=== PATIENT | male | born 2000 | race African-American/Black ===

== ENCOUNTER 2024-04-14 18:44 | Emergency (ER) | payer SELFPAY ==
--- NOTE | 2024-04-14 20:27 | RAD REPORT ---
Abdomen Exam Limited: 04/14/2024 8:09 PM CLINICAL HISTORY: ABD PAIN STUDY: Limited right upper quadrant ultrasound of abdomen. COMPARISON: None. FINDINGS: Liver: No significant abnormality. Bile ducts: No intrahepatic or extrahepatic biliary dilatation. Common bile duct measures 3 mm. Gallbladder: Cholelithiasis with stone present in the region of the gallbladder neck. No gallbladder wall thickening. No sonographic Cuenca sign. No pericholecystic fluid. IMPRESSION: Cholelithiasis with stone present at the gallbladder neck. No evidence of acute cholecystitis at this time.
[2024-04-14 21:38] LABS: Specific Gravity > 1.030 (1.005-1.030); Sqamous Epithelial <5 /HPF (None Seen); Urine Bacteria None Seen /HPF (<20); Urine Bilirubin 1+ (Negative); Urine Blood Negative (Negative); Urine Clarity Clear (Clear); Urine Color Yellow (Yellow); Urine Culture Reflex Order NOT NEEDED; Urine Glucose NEGATIVE (Negative); Urine Ketones NEGATIVE (Negative); Urine Microscopic Reflex YN ORDER UMIC; Urine Mucus Slight /HPF (None Seen); Urine Nitrite NEGATIVE (Negative); Urine Protein 1+ (Negative); Urine Urobilinogen 2+ (Normal); Urine WBC <5 /HPF (<5); Urine pH 6.5 (5.0-7.0)
[2024-04-14 21:49] LABS: SARS-CoV-2 Antigen CONTROL BLUE LINE VIS/BG OK; SARS-CoV-2 Antigen Rapid Res Negative (Negative)
[2024-04-14] MEDS ORDERED: NA CHLORIDE 0.9% 1,000 ML ONE (22:32)
[2024-04-14] MEDS ORDERED: FAMOTIDINE 20 MG/2 ML VIAL IV ONE (22:32)
[2024-04-14] MEDS ORDERED: METHYLPREDNISOLONE 125 MG INJ ONE (22:32)
[2024-04-14 22:41] LABS: Absolute Eosinophils 0.3 K/uL (0-0.5); Absolute Lymphocytes (CBC) 0.9 K/uL (0.7-4.9); Absolute Monocytes 0.4 K/uL (0.1-1.3); Absolute Neutrophil 3.9 K/uL (1.8-8.0); Basophils % 0.3 % (0-1.3); Eosinophils % 5.8 % (0-4.4); Hematocrit 42.6 % (39.6-49.0); Hemoglobin 14.2 g/dL (13.6-17.9); Lymphocytes % 16.1 % (15.3-44.8); MCH 29.6 pg (27.0-35.0); MCHC 33.3 g/dL (32.0-36.0); MCV 88.9 fL (80-100); MPV 7.9 fL (7.6-11.3); Monocytes % 6.5 % (3.3-12.3); Neutrophils % 71.3 % (41.7-73.7); Nucleated Red Blood Cells % 0.2 % (0-0); Platelets 319 thou/uL (152-406); RBC Red Blood Cell Count 4.79 M/uL (4.33-5.43); Red Cell Distribution Width 13.9 % (12.1-15.2)
[2024-04-14 22:55] LABS: Albumin 3.5 g/dL (3.4-5.0); Albumin/Globulin Ratio 0.9 (1.1-1.8); Anion Gap 9.9 mEq/L (5.0-15.0); Bilirubin Total 2.4 mg/dL (0.2-1.0); Globulin 4.1 g/dL (2.3-3.5); Potassium 3.9 mEq/L (3.5-5.1); Protein, Total 7.6 g/dL (6.4-8.2)
--- NOTE | 2024-04-14 23:36 | EDPHYS ---
Physician Documentation [facility] Name: Rodri Clancy Age: 23 yrs Sex: Male : 2000 Arrival Date: 04/14/2024 Time: 18:44 Bed 23 Private MD: ED Physician Efra Carrasco HPI: 04/14 19:34 This 23 yrs old Black Male presents to ER via Ambulatory with complaints of Abdominal kb Pain, Fever, Rash. 19:34 Pt is a 23 year old male who presents for abd pain, fever up to 102, lightheadedness kb that started yesterday. States he developed a rash today as well. Denies n/v/d. . Historical: - Allergies: 18:59 No Known Allergies; hb - Home Meds: 18:59 None [Active]; hb - PMHx: 18:59 None; hb - PSHx: 18:59 None; hb - Immunization history:: Adult Immunizations up to date. - Infectious Disease History:: Denies. - Social history:: Smoking status: Patient denies any tobacco usage or history of. ROS: 23:34 Constitutional: As per HPI kb Exam: 23:34 Constitutional: This is a well developed, well nourished patient who is awake, alert, kb and in no acute distress. Head/Face: Normocephalic, atraumatic. ENT: Moist Mucous membranes Cardiovascular: Regular rate Respiratory: Respirations even and unlabored. No increased work of breathing. Talking in full sentences Skin: Warm, dry with normal turgor. Normal color. MS/ Extremity: Pulses equal, no cyanosis. Neurovascular intact. Full, normal range of motion. Neuro: Awake and alert, GCS 15, oriented to person, place, time, and situation. 23:34 Abdomen/GI: Inspection: abdomen appears normal, Bowel sounds: normal, Palpation: mild abdominal tenderness, in the right upper quadrant, Vital Signs: 18:57 BP 105 / 91; Pulse 90; Resp 18; Temp 98.8(TE); Pulse Ox 98% on R/A; Weight 136.08 kg; hb Height 5 ft. 10 in. ; Pain 5/10; 19:30 BP 130 / 74; Pulse 79; Resp 16; Pulse Ox 99% ; kmf 21:31 BP 126 / 78; Pulse 79; Resp 17; Pulse Ox 100% ; kmf 22:28 BP 145 / 87; Pulse 84; Resp 15; Pulse Ox 98% ; kmf 23:00 BP 142 / 88; Pulse 91; Resp 18; Pulse Ox 98% ; kmf 23:15 BP 146 / 85; Pulse 91; Resp 18; Pulse Ox 98% ; kmf 23:45 BP 149 / 82; Pulse 98; Resp 14; Pulse Ox 97% ; me1 18:57 Body Mass Index 43.05 (136.08 kg, 177.8 cm) hb 18:57 Pain Scale: Adult hb MDM: 18:51 Medical Screening Exam initiated kb 23:34 Differential diagnosis: cholecystitis, Cholelithiasis, non-specific abd pain, kb pancreatitis. Data reviewed: vital signs, nurses notes. Management of patient was discussed with the following: [facility] [employer] Sorter: Dr Clinton consulted, recommends transfer for ERCP. Counseling: I had a detailed discussion with the patient and/or guardian regarding the historical points, exam findings, and any diagnostic results supporting the discharge/admit diagnosis, lab results, radiology results, the need to transfer to another facility, [facility] does not immediately have the required specialist. 04/15 00:13 Management of patient was discussed with the following: [facility] pt for transfer. 04/14 19:37 Order name: CBC with Diff; Complete Time: 22:47 kb 04/14 19:37 Order name: CMP; Complete Time: 22:56 kb 04/14 19:37 Order name: Lipase; Complete Time: 22:56 kb 04/14 19:37 Order name: Urinalysis w/ reflexes; Complete Time: 21:41 kb 04/14 19:37 Order name: Flu; Complete Time: 21:54 kb 04/14 19:37 Order name: SARS-COV-2 Antigen Rapid; Complete Time: 21:54 kb 04/14 19:37 Order name: Abdomen Limited US; Complete Time: 20:28 kb 04/14 19:37 Order name: IV Saline Lock; Complete Time: 22:30 kb 04/14 19:37 Order name: Labs collected and sent; Complete Time: 22:30 kb Administered Medications: 04/14 22:36 Drug: Famotidine IVP 20 mg IVP once; dilute with 10 mL 0.9% NaCl; give over 2 minutes me1 Route: IVP; Site: right forearm; 22:54 Follow up: Response: No adverse reaction me1 22:36 Drug: NS 0.9% IV 1000 ml IV at 1 bolus Per protocol; to be given as a bolus over 60 me1 minutes Route: IV; Rate: 1 bolus; Site: right forearm; 23:44 Follow up: Response: No adverse reaction; IV Status: Completed infusion; IV Intake: me1 1000ml 22:36 Drug: MethylPrednisoLONE IVP 125 mg IVP once Route: IVP; Site: right forearm; me1 22:54 Follow up: Response: No adverse reaction me1 Disposition Summary: 04/14/24 23:35 Transfer Ordered Notes: Transfer Location: Other [facility] kb Reason: Higher level of care kb Condition: Stable kb Problem: new kb Symptoms: are unchanged kb Accepting Physician: Dr Sherman(04/15/24 01:28) lg3 Diagnosis - Other cholelithiasis without obstruction kb - Abnormal results of liver function studies kb Discharge Instructions: - Discharge Summary Sheet rv1 Forms: - Medication Reconciliation Form kb - SBAR form kb - Family Work Release rv1 Signatures: Dispatcher [employer] EDMalu Pool, SUPERCALENDER OPERATOR-C SUPERCALENDER OPERATOR-Ckb Roxane Gallardo, RN RN Milena Arana RN RN lg3 Gina Mendez, RN RN me1 Corrections: (The following items were deleted from the chart) 18:59 18:59 PMHx: Unable to Obtain; hb hb 19:38 19:38 Abdomen Limited+US.RAD.BRZ ordered. EDMS EDMS 04/15 00:39 04/14 23:35 Dr zulma maya 04/15 01:28 00:[address] maya lg3
--- NOTE | 2024-04-14 23:36 | ER ---
Nurse's Notes [facility] Name: Rodri Clancy Age: 23 yrs Sex: Male : 2000 Arrival Date: 04/14/2024 Time: 18:44 Bed 23 Private MD: Diagnosis: Other cholelithiasis without obstruction;Abnormal results of liver function studies Presentation: 04/14 18:57 Chief complaint: Fever and abdominal pain x 2 days, itchy rash today. Coronavirus hb screen: At this time, the client does not indicate any symptoms associated with coronavirus-19. Ebola Screen: No symptoms or risks identified at this time. Initial Sepsis Screen: Does the patient meet any 2 criteria? No. Patient's initial sepsis screen is negative. Does the patient have a suspected source of infection? No. Patient's initial sepsis screen is negative. Risk Assessment: Do you want to hurt yourself or someone else? Patient reports no desire to harm self or others. Onset of symptoms was April 13, 2024. 18:57 Method Of Arrival: Ambulatory hb 18:57 Acuity: JOSE ARMANDO 3 hb Historical: - Allergies: 18:59 No Known Allergies; hb - Home Meds: 18:59 None [Active]; hb - PMHx: 18:59 None; hb - PSHx: 18:59 None; hb - Immunization history:: Adult Immunizations up to date. - Infectious Disease History:: Denies. - Social history:: Smoking status: Patient denies any tobacco usage or history of. Screenin:45 [facility] ED Fall Risk Assessment (Adult) History of falling in the last 3 months, me1 including since admission No falls in past 3 months (0 pts) Confusion or Disorientation No (0 pts) Intoxicated or Sedated No (0 pts) Impaired Gait No (0 pts) Mobility Assist Device Used No (0 pt) Altered Elimination No (0 pt) Score/Fall Risk Level 0 - 2 = Low Risk Maintained a safe environment, Provided non-skid footwear, Hourly rounding (assess needs \T\ fall precautionary measures) done. Abuse screen: Denies threats or abuse. Nutritional screening: No deficits noted. Tuberculosis screening: No symptoms or risk factors identified. Assessment: 20:45 General: Appears uncomfortable, obese, well groomed, well developed, Behavior is calm, me1 cooperative, appropriate for age. General: Fever and abdominal pain x 2 days, itchy rash today.. Pain: Complains of pain in abdomen Pain does not radiate. Pain currently is 2 out of 10 on a pain scale. Quality of pain is described as crampy, Pain began gradually, 2-3 days ago. Is continuous. Neuro: Level of Consciousness is awake, alert, obeys commands, Oriented to person, place, time, situation, Appropriate for age. Cardiovascular: Patient's skin is warm and dry. Respiratory: Airway is patent Respiratory effort is even, unlabored, Respiratory pattern is regular, symmetrical. GI: Abdomen is round Bowel sounds present X 4 quads. Abd is soft X 4 quads. GI: Reports lower abdominal pain, upper abdominal pain. : No signs and/or symptoms were reported regarding the genitourinary system. EENT: No signs and/or symptoms were reported regarding the EENT system. Derm: Rash noted that is urticaria, on left low back and right low back. Musculoskeletal: No signs and/or symptoms reported regarding the musculoskeletal system. 04/15 01:28 Reassessment: Patient appears in no apparent distress at this time. No changes from lg3 previously documented assessment. Patient and/or family updated on plan of care and expected duration. Pain level reassessed. Patient is alert, oriented x 3, equal unlabored respirations, skin warm/dry/pink. Vital Signs: 04/14 18:57 BP 105 / 91; Pulse 90; Resp 18; Temp 98.8(TE); Pulse Ox 98% on R/A; Weight 136.08 kg; hb Height 5 ft. 10 in. ; Pain 5/10; 19:30 BP 130 / 74; Pulse 79; Resp 16; Pulse Ox 99% ; kmf 21:31 BP 126 / 78; Pulse 79; Resp 17; Pulse Ox 100% ; kmf 22:28 BP 145 / 87; Pulse 84; Resp 15; Pulse Ox 98% ; kmf 23:00 BP 142 / 88; Pulse 91; Resp 18; Pulse Ox 98% ; kmf 23:15 BP 146 / 85; Pulse 91; Resp 18; Pulse Ox 98% ; kmf 23:45 BP 149 / 82; Pulse 98; Resp 14; Pulse Ox 97% ; me1 18:57 Body Mass Index 43.05 (136.08 kg, 177.8 cm) hb 18:57 Pain Scale: Adult hb ED Course: 18:50 Patient arrived in ED. mr 18:51 BandarMalu FNP-C [facility] kb 18:51 Efra Carrasco MD is Attending Physician. kb 18:59 Triage completed. hb 19:00 Arm band placed on. hb 20:11 Abdomen Limited US In Process Unspecified. EDMS 20:45 Patient has correct armband on for positive identification. Bed in low position. Call me1 light in reach. Side rails up X2. Provided Education on: POC. Verbalized understanding. . Client placed on continuous cardiac and pulse oximetry monitoring. NIBP monitoring applied. Pulse ox on. NIBP on. 20:45 No provider procedures requiring assistance completed. me1 20:51 Gina Mendez, ZEESHAN is Primary Nurse. me1 21:18 Urinalysis w/ reflexes Sent. me1 21:18 Flu Sent. me1 21:18 SARS-COV-2 Antigen Rapid Sent. me1 21:18 Urine collected: clean catch specimen, tea colored, COVID swab sent to lab. Flu and/or me1 RSV swab sent to lab. 21:45 Missed attempt(s): 20 gauge in right antecubital area. Bleeding controlled, band aid kmf applied, catheter tip intact. 21:45 Missed attempt(s): 20 gauge in left antecubital area. kmf 22:30 Accessed peripheral vein via ultrasound, utilizing dynamic ultrasound technique Blood cm10 collected. Clean \T\ dry. Dressing intact. Good blood return. Flushes easily. 20g right forearm. 04/15 01:28 Patient transferred, IV remains in place. lg3 Administered Medications: 04/14 22:36 Drug: Famotidine IVP 20 mg IVP once; dilute with 10 mL 0.9% NaCl; give over 2 minutes me1 Route: IVP; Site: right forearm; 22:54 Follow up: Response: No adverse reaction me1 22:36 Drug: NS 0.9% IV 1000 ml IV at 1 bolus Per protocol; to be given as a bolus over 60 me1 minutes Route: IV; Rate: 1 bolus; Site: right forearm; 23:44 Follow up: Response: No adverse reaction; IV Status: Completed infusion; IV Intake: me1 1000ml 22:36 Drug: MethylPrednisoLONE IVP 125 mg IVP once Route: IVP; Site: right forearm; me1 22:54 Follow up: Response: No adverse reaction me1 Medication: 20:45 VIS not applicable for this client. me1 Intake: 23:44 IV: 1000ml; Total: 1000ml. me1 Outcome: 23:35 ER care complete, transfer ordered by MD. maya 04/15 01:28 [place] by ground [place] [facility] [facility] [place]. lg3 Condition: stable Instructed on the need for transfer, Demonstrated understanding of instructions, 01:28 Patient left the ED. lg3 Signatures: Dispatcher [employer] EDMS Malu Portillo, NON GARMENT SEWING MACHINE OPERATOR-C NON GARMENT SEWING MACHINE OPERATOR-Ckb Jacques, Dania, Reg Reg mr Roxane Gallardo, RN RN AbleMilena RN RN lg3 Janki Scott, RN RN 10 Gina Mendez RN RN mn1 Jena Montez [facility] Corrections: (The following items were deleted from the chart) 04/14 18:59 18:59 PMHx: Unable to Obtain; hb hb 19:00 18:57 Chief complaint: Fever and abdominal pain x 2 days. hb hb 21:58 18:57 Chief complaint: Fever and abdominal pain x 2 days, itchy rash today. hb me1 23:39 23:38 BP 130 / 74; Pulse 79bpm; Resp 16bpm; Pulse Ox 99%; f [facility] 23:42 23:41 BP 145 / 87; Pulse 84bpm; Resp 15bpm; Pulse Ox 98%; [facility] 04/15 00:04 04/14 12:45 BP 149 / 82; Pulse 98bpm; Resp 14bpm; Pulse Ox 97%; me1 me1
[2024-04-15 09:34] VITALS: TEMP 98.8
[2024-04-15 09:41] VITALS: BP 149/82; O2SAT 97
== END 2024-04-15 01:28 | disposition short-term general hospital (02) ==
LOC: ER 18:44
DX: K80.80 Other cholelithiasis without obstruction (principal); R94.5 Abnormal results of liver function studies; Z11.52 Encounter for screening for COVID-19
CPT/HCPCS: 36415; 76705; 80053; 81001; 83690; 85025; 87804; 87811; J2919; J7030